=== PATIENT | female | born 1965 | race Caucasian/White ===

== ENCOUNTER → 2019-05-01 11:57 | Outpatient (CLI) | payer OTHER, SELFPAY ==
--- NOTE | ~2019-05-01 | XR_ITS ---
EXAMINATION: XR cervical spine 4-5V DATE: 05/01/2019 12:26 INDICATION: Neck and left arm pain. Cervical radiculopathy. TECHNIQUE: 4 views of cervical spine were obtained. COMPARISON: None. FINDINGS: There is 3 degrees dextrocurvature of cervical spine. Vertebral body heights are normal. Th ere is mildly decreased disc height at C5-C6 and moderately decreased disc height at C6-C7. There is mild developmental osseous central canal stenosis from C3 to C7. The facet joints are unremarkable. N o prevertebral soft tissue swelling. IMPRESSION: 1. Moderate cervical spondylosis. Reviewed, dictated and finalized at location A. MANAGER
== END ==
PROVIDERS: PCP Family Medicine; Visit Provider Family Medicine
DX: M47.22 Other spondylosis with radiculopathy, cervical region (principal)
CPT/HCPCS: 72050

== ENCOUNTER 2020-01-14 03:28 | Outpatient (CLI) | payer OTHER, SELFPAY ==
[2020-01-14 17:45] LABS: SARS-CoV-2 RNA PCR Negative
== END 2020-01-14 03:29 | disposition home or self-care (01) ==
LOC: ANHCOVIDDT 03:28
PROVIDERS: PCP Family Medicine; Visit Provider Orthopaedic Surgery
DX: Z01.812 Encounter for preprocedural laboratory examination (principal); Z20.828 Contact with and (suspected) exposure to other viral communicable diseases
CPT/HCPCS: 87635; C9803; U0003

== ENCOUNTER 2020-01-17 01:36 | Day surgery (SDC) | payer OTHER, SELFPAY ==
[2020-01-03 14:56] VITALS: BMI 34.1
[2020-01-17] MEDS: ACETAMINOPHEN 500 MG TABLET 1000 MG PO (07:50)
[2020-01-17] MEDS: KETOROLAC 15 MG/ML VIAL (*BKC) IV PUSH (07:55)
[2020-01-17 08:00] VITALS: BP 118/80; PULSE 80; RESP 16; TEMP 36.6; O2SAT 97
[2020-01-17] MEDS: LACTATED RINGERS 1,000 ML 30 ML IV CONT (08:00)
--- NOTE | 2020-01-17 08:17 | P.PNAN_ITS ---
Anes - Initial Pre Proc Eval Procedure: Operation Date: 01/17/20 09:30 Proposed Procedures p Right Third Trigger Finger Release - Cliff Rust MD Date/Time: 01/17/20 08:17 Surgeon: Cliff Rust MD Pre Op Diagnosis: Right Third Trigger Finger Patient Data Age: 54 Gender: F Height: 1.59 m Weight: 88.2 kg Allergies Allergy/AdvReac Type Severity Reaction Status Date / Time No Known Allergies Allergy Mild Unverified 01/17/20 08:14 Home Medications Medication Instructions Recorded Confirmed Type labetalol 200 mg tablet 200 mg PO Q12H 07/06/19 01/17/20 History losartan 25 mg tablet 25 mg PO DAILY 07/06/19 01/17/20 History Patient hx anesthesia problems: none Family hx anesthesia problems: none [facility] Past Medical History Medical History (Updated 12/29/19 @ 08:40 by Cliff Rust MD) Hypertension Skin cancer Surgical History Surgical History Hx of cholecystectomy 08/1989-Dr. Montalvo @ 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 Gender identity (if verbalized by the patient): Female Spiritual care concerns: No Anes - Eval Final PreProcedure Day of Procedure 01/17/20 08:17 Patient weight: obese Heart: regular rate and rhythm Lungs: clear to auscultation and normal air movement Airway: Mallampati scale class II Neurological: alert and oriented Last oral intake: >/= 8 hours ASA classification: III Emergent: no Anesthetic plan: proceed Anesthesia type and monitoring: general GIVS and standard monitoring Informed Consent: The patient's anesthetic plan and its attendant risks and benefits were discussed with the patient/family/POA. Questions were solicited and answers provided to the satisfaction of the patient/family/POA.
--- NOTE | 2020-01-17 08:42 | WPDHPUPDATE1 ---
History and Physical Update Update Date/Time: 01/17/20 08:42 History and Physical has been reviewed, including an updated exam of the patient. There are NO changes in the patient's condition. Risks, benefits, and alternatives have been discussed and questions answered. Patient agrees to proceed with procedure.
[2020-01-17] MEDS: ceFAZolin 2 GM/D5W 50 ML 2 GM/50 ML BAG IVPB (09:16)
[2020-01-17 09:44] VITALS: BP 111/69; PULSE 73; RESP 16; O2SAT 96
--- NOTE | 2020-01-17 09:49 | PM.PROC ---
Procedure Note - Detailed Date of procedure: 01/17/20 Pre-op diagnosis: Right Third Trigger Finger Post-op diagnosis: same Procedure performed: Right third trigger finger release Description of procedure: The patient was identified and proper site identified. She was taken to the operating room and transferred to the OR table placing her supine taking care to pad her torso and extremities. A nonsterile tourniquet was placed high on the right arm which was then prepped and draped in the usual sterile fashion. She was administered IV sedation. The extremity was exsanguinated and the tourniquet was inflated to 250 mmHg remaining up for 6 minutes. Several cc of 0.25% plain Marcaine was injected into the subcutaneous tissue over the A1 monik of the third digit right hand. A longitudinal incision was made over the A1 monik of the right third digit. Subcutaneous tissue was bluntly dissected protecting neurovascular bundles. A1 monik was identified and then transected longitudinally in line with the incision. There is a small flexor tendon sheath ganglion at the level of the A1 monik which was decompressed. The tendons were delivered into the wound to verify the adequacy of the release. The wound was irrigated with sterile antibiotic solution. Skin edges reapproximated with for 0 nylon suture and a sterile dressing was applied. Tourniquet was released. She tolerated the procedure well. She was taken back to the recovery area in stable condition. There were no known intraoperative complications. Estimated blood loss was negligible. She received perioperative antibiotics. Anesthesia: MAC Surgeon: Cliff Rust MD Estimated blood loss (mL): 1 Tourniquet time (min): 6 Drains: No Packing: No Pathology: none sent Complications: No immediate complications Condition: stable Disposition: PACU
[2020-01-17 10:15] VITALS: BP 106/76; PULSE 62; RESP 14
[2020-01-17 10:45] VITALS: BP 117/77; PULSE 56; RESP 14
== END 2020-01-17 10:50 | disposition home or self-care (01) ==
PROVIDERS: PCP Family Medicine; Visit Provider Orthopaedic Surgery
PROC: (CPT 26055; principal; 2020-01-17 09:30)
DX: M65.331 Trigger finger, right middle finger (principal); I10 Essential (primary) hypertension; E66.9 Obesity, unspecified; Z68.35 Body mass index [BMI] 35.0-35.9, adult
CPT/HCPCS: 26055; A9270; J0690; J1885; J2250; J2405; J2704; J3010; J7120

== ENCOUNTER 2020-02-21 12:45 | Outpatient (NON) | payer OTHER, SELFPAY ==
[2020-02-22 19:17] LABS: SARS-CoV-2 RNA PCR Positive
== END 2020-02-21 12:46 ==
LOC: ANHCOVIDDT 12:46
PROVIDERS: PCP Family Medicine; Visit Provider Family Medicine
DX: U07.1 COVID-19 (principal)
CPT/HCPCS: 87635; C9803; U0003

== ENCOUNTER → 2022-12-24 08:37 | Outpatient (CLI) | payer OTHER, SELFPAY | PROVIDERS: PCP Student in an Organized Health Care Education/Training Program; Visit Provider Nurse Practitioner | DX: M25.562 Pain in left knee (principal) | CPT/HCPCS: 73562 ==

== ENCOUNTER → 2023-03-05 10:49 | Outpatient (CLI) | payer OTHER, SELFPAY ==
--- NOTE | ~2023-03-05 | MR_ITS ---
MRI of the left knee Clinical history: Pain Technique: Coronal proton density and proton density-weighted images, sagittal proton-density and T2 fat-sat images, and axial proton-density fat-saturated images were acquired. Findings: Anterior and posterior cruciate ligaments are intact. Medial collateral ligament and the la teral collateral complex are intact. Popliteus tendon is intact. There is horizontal tear of the posterior horn of the medial meniscus. No lateral meniscal tear seen. There is mild chondral thinning in the medial lateral compartment. There is extensive moderate to hig h-grade chondromalacia the patellofemoral compartment. Extensor mechanism is intact. No significant joint effusion or Granados's cyst. Impression: Horizontal tear of the posterior horn medial meniscus. Tricompartmental chondral thinning, worst in the patellofemoral compartment. Reviewed, dictated and finalized at [facility]. 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 Tricompartmental chondral thinning, worst in the patellofemoral compartment.
== END ==
PROVIDERS: PCP Student in an Organized Health Care Education/Training Program; Visit Provider Orthopaedic Surgery
DX: S83.242A Other tear of medial meniscus, current injury, left knee, initial encounter (principal)
CPT/HCPCS: 73721

== ENCOUNTER 2023-05-16 11:37 | Outpatient (CLI) | payer OTHER, SELFPAY ==
--- NOTE | 2023-05-16 11:44 | ECG_ITS ---
Measurements Intervals [place] Rate: 64 P: 17 AR: 153 QRS: 56 QRSD: 88 T: 21 QT: 384 QTc: 397 Interpretive Statements SINUS RHYTHM NONSPECIFIC T-WAVE ABNORMALITY BORDERLINE ECG NO PREVIOUS ECG AVAILABLE FOR COMPARISON Electronically Signed On 05-16-2023 12:45:52 AVIATION ENGINEER by Christian Zepeda M.D.
== END 2023-05-16 11:38 | disposition home or self-care (01) ==
LOC: ANHSURGERY 11:40
PROVIDERS: PCP Student in an Organized Health Care Education/Training Program; Visit Provider Orthopaedic Surgery
DX: I10 Essential (primary) hypertension (principal); Z01.818 Encounter for other preprocedural examination
CPT/HCPCS: 93005

== ENCOUNTER 2023-05-21 01:52 | Day surgery (SDC) | payer OTHER, SELFPAY ==
[2023-05-14 11:18] VITALS: BMI 33.8
--- NOTE | 2023-05-14 11:25 | PC.NURSE ---
Report to the Outpatient Waiting Room, entrance under the green pavilion located off [facility], at time 6:00 on date 05/21/23. Planned Procedure Time: 7:30. Time changes happen often and if your time is changed the preop area will call you the afternoon before. - You and your visitor will be asked to self-screen and do not enter if you have any COVID symptoms. - A mask is optional within the hospital at this time. Patients may have clear liquids (water, carbonated beverages, clear teas, apple juice) until 3 hours prior to surgery (4:30) with a maximum of 20 ounces. - No food from midnight until time of surgery Take the following medications with a SIP of water the morning of surgery: LABETALOL DO NOT STOP ANY OF YOUR OTHER PRESCRIPTION MEDICATIONS PRIOR TO SURGERY ?EXCEPT THE FOLLOWING Medications to discontinue per physician: DICLOFENAC Date to take last dose: 05/17/23 (PER PT PER DR. KING) Please no make-up, nail mexican, hairspray, perfume, deodorant, or body powder the day of surgery. No jewelry (including any body piercings) or valuables the day of surgery, leave them at home. Please take a shower or bath the night before, or the morning of, surgery with an antibacterial soap. Wear comfortable, loose fitting clothing. - Jewelry must be removed prior to entering the operating room. Rings and piercings that are not removed may be cut off. - The hospital will not accept responsibility for valuables. - Please leave all valuables, including medications, at home the day of surgery. If you are going home after surgery, a licensed delivery motorcycle driver must drive you home. - NO public transportation without another adult if you receive anesthesia. - We recommend that an adult stay with you for 24 hours following discharge. - We also recommend that you do not drive, make important decision, drink alcoholic beverages, or take any drugs that were not prescribed by your health care provider for at least 24 hours after your discharge time. Follow any additional instructions given to you from your surgeon. If you or anyone in your household have experienced Covid symptoms in the past week, please notify your surgeon or the nurse liaison at the phone number below for possible testing. Telephone instructions given to PT - FLORES GOMEZ and asked if any additional questions and then verbalized understanding. Patient advised to call surgeon office or pre surgery nurse liaison [phone] if any additional questions.
--- NOTE | 2023-05-19 12:31 | PM.IMHP ---
H&P: HPI History of Present Illness Date/Time: 05/19/23 12:31 Chief Complaint: Right ring trigger finger Narrative: 57-year-old female who presents today for an A1 monik release of her right ring finger. She has had recurrence of the triggering in the finger. She has had 3 cortisone injections so far, unfortunately she has had recurrence of the triggering again. Typically the fingers lock down the morning and is very painful for her to open iit. The finger also triggers throughout the day depending on activities. Patient was advised and she has already had 3 injections in the finger is recommended to proceed with surgery rather continue injections. continued repeat injections could cause tendon rupture. Review of Systems Review of Systems: All systems reviewed & are unremarkable except as noted in HPI and below PMFSH Past Medical History Medical History Hypertension Skin cancer Surgical History Surgical History Hx of cholecystectomy 08/1989-Dr. Montalvo @ [facility] Trigger finger, right middle finger right third Trigger finger release December 2019 Family History Family History Mother Hypertension Father Hypertension Grandparent Hypertension Cancer Sibling Hypertension Social History Social History Smoking status: Never smoker Alcohol intake: current Alcohol use details: VERY RARE Substance use: never Substance use type: does not use Lack of Transportation: No Lack of Food: Never True Current Housing: I Have Housing Concerned About Future Housing: No Difficulty Paying Gas/Electric Bills: No Difficulty Paying for Meds: No Currently Unemployed: No Difficulty w/ Childcare or Family Care: No Living arrangements: with family Additional living arrangements comments: Spouse and 2 children Occupation/Education: occupation 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 Gender identity (if verbalized by the patient): Female Spiritual care concerns: No Meds Home Medications and Allergies Home Medications Medication Instructions Recorded Confirmed Type labetalol 200 mg tablet 200 mg PO Q12H 07/06/19 05/14/23 History losartan 25 mg tablet 25 mg PO DAILY 07/06/19 05/14/23 History omeprazole magnesium 20 mg 20 mg PO HS 12/20/21 05/14/23 History capsule,delayed release (Acid Shellfish Meat Separator Operator (omeprazole)) diclofenac sodium 50 mg 50 mg PO BID 05/14/23 05/14/23 History tablet,delayed release gabapentin 300 mg capsule 300 mg PO HS 05/14/23 05/14/23 History Allergies Allergy/AdvReac Type Severity Reaction Status Date / Time No Known Allergies Allergy Mild Verified 05/14/23 11:16 Exam Narrative: 57-year-old female alert pleasant. She has full range of motion of the right ring finger. She has active triggering with range of motion. No flexion contracture. Moderate tenderness over the A1 monik. No numbness or tingling in the fingers. 2+ radial pulse. Resp: Auscultation: clear to auscultation bilaterally Cardio: Rate: regular rate Rhythm: regular rhythm Assessment and Plan Assessment and plan (1) Trigger finger: Qualifiers: Trigger finger location: little finger Laterality: right Qualified Code(s): M65.351 - Trigger finger, right little finger Code(s): M65.30 - Trigger finger, unspecified finger Status: Chronic Plan 57-year-old female who has had recurrence of her right ring trigger finger. Again she has already had 3 injections in it , at this point patient feels he is ready to proceed with surgery rather continue nonsurgical treatment. Patient has had 1 other finger surgically released and is aware of the recovery. Surgical procedures well as risks and complicatio
[2023-05-21] MEDS: KETOROLAC 15 MG/ML VIAL (*BKC) IV PUSH (10:46)
[2023-05-21] MEDS: LACTATED RINGERS 1,000 ML 30 ML IV CONT (10:50)
[2023-05-21 10:52] VITALS: BP 128/69; PULSE 64; RESP 14; TEMP 36.3; O2SAT 98
--- NOTE | 2023-05-21 10:52 | P.PNAN_ITS ---
Anes - Initial Pre Proc Eval Procedure: Operation Date: 05/21/23 12:00 Proposed Procedures p A-1 Katiuska Release Right Ring Finger - Arnold Vargas MD Date/Time: 05/21/23 10:52 Surgeon: Arnold Vargas MD Pre Op Diagnosis: Right Ring Trigger Finger Patient Data Age: 57 Gender: F Height: 1.59 m Weight: 85.3 kg Allergies Allergy/AdvReac Type Severity Reaction Status Date / Time No Known Allergies Allergy Mild Verified 05/14/23 11:16 Home Medications Medication Instructions Recorded Confirmed Type labetalol 200 mg tablet 200 mg PO Q12H 07/06/19 05/14/23 History losartan 25 mg tablet 25 mg PO DAILY 07/06/19 05/14/23 History omeprazole magnesium 20 mg 20 mg PO HS 12/20/21 05/14/23 History capsule,delayed release (Acid Office Workforce Planner (omeprazole)) diclofenac sodium 50 mg 50 mg PO BID 05/14/23 05/14/23 History tablet,delayed release gabapentin 300 mg capsule 300 mg PO HS 05/14/23 05/14/23 History Patient hx anesthesia problems: none Family hx anesthesia problems: none Results Review: All pre-operative results and documents have been reviewed as part of the pre- operative evaluation. [facility] Past Medical History Medical History (Updated 05/21/23 @ 10:52 by Kameron Cross MD) BMI 31.0-31.9,adult Hypertension JOSÉ (obstructive sleep apnea) Skin cancer Surgical History Surgical History Hx of cholecystectomy 08/1989-Dr. Montalvo @ [facility] Trigger finger, right middle finger right third Trigger finger release December 2019 Family History Family History Mother Hypertension Father Hypertension Grandparent Hypertension Cancer Sibling Hypertension Social History Social History Smoking status: Never smoker Alcohol intake: current Alcohol use details: VERY RARE Substance use: never Substance use type: does not use Lack of Transportation: No Lack of Food: Never True Current Housing: I Have Housing Concerned About Future Housing: No Difficulty Paying Gas/Electric Bills: No Difficulty Paying for Meds: No Currently Unemployed: No Difficulty w/ Childcare or Family Care: No Living arrangements: with family Additional living arrangements comments: Spouse and 2 children Occupation/Education: occupation Additional occupation/education comments: [employer] Gender identity (if verbalized by the patient): Female Spiritual care concerns: No Anes - Eval Final PreProcedure Day of Procedure 05/21/23 10:52 Patient weight: obese Heart: regular rate and rhythm Lungs: clear to auscultation Airway: Mallampati scale class II Neurological: alert and oriented Last oral intake: >/= 8 hours ASA classification: III Emergent: no Anesthetic plan: proceed Anesthesia type and monitoring: general LMA and standard monitoring Results Review: All pre-operative results and documents have been reviewed as part of the pre- operative evaluation. Informed Consent: The patient's anesthetic plan and its attendant risks and benefits were discussed with the patient/family/POA. Questions were solicited and answers provided to the satisfaction of the patient/family/POA.
[2023-05-21 10:53] VITALS: BMI 34.1
--- NOTE | 2023-05-21 11:29 | WPDHPUPDATE1 ---
History and Physical Update Update Date/Time: 05/21/23 11:29 History and Physical has been reviewed, including an updated exam of the patient. There are NO changes in the patient's condition. Risks, benefits, and alternatives have been discussed and questions answered. Patient agrees to proceed with procedure.
[2023-05-21] MEDS: ceFAZolin 2 GM/D5W 50 ML 2 GM/50 ML BAG IVPB (12:01)
[2023-05-21] MEDS: LIDOCAINE HCL 1% LOCAL INJ 10 ML VIAL 4 ML INFILTRATE (12:35)
[2023-05-21 12:48] VITALS: BP 107/75; PULSE 68; RESP 14; O2SAT 95
--- NOTE | 2023-05-21 12:54 | W.PM.PROC2 ---
Procedure Note - Detailed Date of Procedure 05/21/23 Pre-op Diagnosis Right Ring Trigger Finger Post-op Diagnosis Same Procedure Performed A1 monik release right ring finger flexor tendon sheath Surgeon Arnold Vargas MD Anesthesia General Description of Procedure Patient was brought to the operating room and general anesthesia was administered to the right arm prepped draped usual fashion. She received 2 g of Ancef IV preoperatively. Local anesthesia was administered at the incision site and a 1 cm longitudinal incision was made over the A1 monik. Blunt longitudinal dissection brought us down to the center of the A1 monik which was exposed. The distal cleft between A1 monik and A2 monik was clearly delineated and the A1 mnoik was released from its distal edge through the proximal completing the release. The tendon looked normal and has moved gliding. Did seem a little bit swollen in the area of the release. Tourniquet was released local anesthesia additionally injected 1% lidocaine plain hemostasis achieved with a few minutes of pressure and the wound closed with 5 0 nylon sutures the patient transferred postop recovery room in stable condition. Estimated Blood Loss 1 Tourniquet Time Total Tourniquet Time: 6
[2023-05-21 13:15] VITALS: BP 120/69; PULSE 60; RESP 16
[2023-05-21 13:45] VITALS: BP 116/74; PULSE 55; RESP 16
[2023-05-21 14:00] VITALS: BP 120/65; PULSE 60; RESP 16
== END 2023-05-21 14:10 | disposition home or self-care (01) ==
PROVIDERS: PCP Student in an Organized Health Care Education/Training Program; Visit Provider Orthopaedic Surgery
PROC: (CPT 26055; principal; 2023-05-21 12:00)
DX: M65.341 Trigger finger, right ring finger (principal); I10 Essential (primary) hypertension
CPT/HCPCS: 26055; 93005; J0690; J1100; J1885; J2250; J2405; J2704; J3010; J7120